=== PATIENT | female | born 1970 | race African-American/Black ===

== ENCOUNTER 2016-07-04 18:52 | Emergency (ER) | payer SELFPAY | END 2016-07-04 21:18 | disposition home or self-care (01) | LOC: ER 18:52 | DX: S93.402A Sprain of unspecified ligament of left ankle, initial encounter (principal); I10 Essential (primary) hypertension; Z88.5 Allergy status to narcotic agent; Z88.6 Allergy status to analgesic agent; Z87.891 Personal history of nicotine dependence; W19.XXXA Unspecified fall, initial encounter | CPT/HCPCS: 73610-LT; 96374; 99283 ==